=== PATIENT | female | born 1945 | race Caucasian/White ===

== ENCOUNTER 2016-10-24 20:19 | Emergency (ER) | payer MEDICARE ==
--- NOTE | 2016-10-24 22:48 | ERNOTE ---
Time Seen by Provider: 10/24/16 22:40 Stated Complaint: loosing voice Presenting Symptoms:: cough, runny nose Source: patient, family Exam Limitations: no limitations Immunizations: IMMUNIZATION HX Immunizations Up to Date Yes History of Influenza Vaccine No Hx Pneumococcal Vaccination No Allergies/Adverse Reactions: Allergies No Known Allergies Allergy (Verified 11/29/15 18:18) Home Medications: HOME MEDICATIONS Aspirin 325 mg PO DAILY 11/25/14 [Last Taken 11/29/15 07:00] Atenolol [Tenormin] 100 mg PO DAILY 11/25/14 [Last Taken 11/29/15 07:00] Levothyroxine Sodium [Synthroid] 100 mcg PO DAILY 11/25/14 [Last Taken 11/29/15 07:00] Simvastatin [Zocor] 40 mg PO HS 11/25/14 [Last Taken 11/28/15 22:00] Lisinopril/Hydrochlorothiazide [Lisinopril-Hctz 20-12.5 mg Tab] 20 - 25 mg PO DAILY 05/22/15 [Last Taken 11/29/15 08:00] amLODIPine BESYLATE [Norvasc] 2.5 mg PO DAILY 05/22/15 [Last Taken 11/29/15 17: 00] - History of Present Ilness Narrative: Pt having sinus congestion onset today, cough and PND onset a few days ago, now loosing her voice Timing: getting worse Severity: moderate Frequency/Possible Cause: Reports: occasional episodes Associated Symptoms: Denies: shortness of breath Review of Systems - Review of Systems Constitutional: Absent: fever, chills EYE: Present: no symptoms reported ENT: Present: See HPI, nose congestion, nasal drainage Respiratory: Present: See HPI, cough. Absent: shortness of breath, wheezing Cardiology: Absent: chest pain, palpitations Gastrointestinal/Abdominal: Absent: nausea, vomiting Genitourinary: Present: no symptoms reported Musculoskeletal: Present: no symptoms reported Skin: Present: rash - left side of face, she reacts to the metal in her phone and had a long phone conversation with her sister last week, which caused the rash Neurological: Present: no symptoms reported Endocrine: Present: no symptoms reported Hematologic/Lymphatic: Present: no symptoms reported Psych: Present: no symptoms reported - Patient's Past Medical History Patient History - Medical: No pertinent hx, Hypothyroidism Patient History - Cardiac/Respiratory: COPD, Hypertension, Myocardial Infarction Patient History - Cancer: No Hx of Cancer Patient History - Surgical Procedures: T & A Patient History - Other: None - Family History Mother Family History - Medical: , No pertinent hx Family History - Cardiac/Respiratory: No pertinent hx Father Family History - Medical: , No pertinent hx Family History - Cardiac/Respiratory: No pertinent hx - Social History Living Situations: alone Abuse History: No History of abuse Psych History: No pertinent hx Smoking Status: Current every day smoker Patient requests Smoking Cessation Consult: No Initiate information on Smoking Cessation: No Alcohol Use: none Drug Use: none - Immunizations Immunizations Up to Date: Yes Hx Pneumococcal Vaccination: No History of Influenza Vaccine: No Physical Exam - Physical Exam General Appearance: Present: wd/wn, alert, no apparent distress Eye Exam: Normal inspection: bilateral, PERRL: bilateral Ears, Nose, Throat: Present: nasal congestion. Absent: tonsillar swelling Respiratory: Present: no respiratory distress, decreased breath sounds - very poor air movement, expiration (prolonged) Cardiovascular/Chest: Present: regular rate, rhythm Extremity Exam: Present: normal inspection, non-tender Neurological Exam: Present: alert, oriented, normal mood/affect, no motor/ sensory deficits ED Progress - Vital Signs Vital Signs: Vital Signs 10/24/16 10/24/16 20:30 21:51 Temperature 36.9 C Pulse Rate 63 90 Respiratory 20 18 Rate Blood Pressure 162/69 158/86 O2 Sat by Pulse 98 95 Oximetry - X-Ray X-Ray #1 X-Ray: chest Interpretation: Interp. by me X-ray Comments: hyperinflation of COPD, Nothing acute - Progress/Reassessment Chief Complaint: Upper Respiratory Symptoms Departure - Departure Clinical Impression: Bronchitis Dermatitis due to metals Qualifiers: Contact dermatitis type: allergic Qualified Code(s): L23.0 - Allergic contact dermatitis due to metals Disposition: Home self-care Condition: Good Instructions: Acute Bronchitis, [id number] Additional Instructions: you may use hydrocortisone cream on your face for 5-7 days. if not improving see your regular doctor Referrals: [Primary Care Provider] -
[2016-10-25] MEDS ORDERED: ALBUTEROL SULFATE 200 PUFF INHALER IH ONE (00:16)
[2016-10-25] MEDS ORDERED: ALBUTEROL SULFATE 60 PUFF INHALER IH ONE (00:25)
[2016-10-25 00:36] VITALS: BP 131/75
== END 2016-10-25 00:38 | disposition home or self-care (01) ==
LOC: ER 20:19
DX: J20.8 Acute bronchitis due to other specified organisms (principal); Z72.0 Tobacco use; L23.0 Allergic contact dermatitis due to metals; I10 Essential (primary) hypertension; E03.9 Hypothyroidism, unspecified; I25.2 Old myocardial infarction; J04.0 Acute laryngitis

== ENCOUNTER 2016-10-25 19:30 | Emergency (ER) | payer MEDICARE ==
[2016-10-25 19:46] VITALS: BP 146/72
--- NOTE | 2016-10-25 20:50 | ERNOTE ---
ENT HPI Presenting Symptoms: other Time Seen by Provider: 10/25/16 20:30 Source: patient Exam Limitations: no limitations - Immun/Allergies/Home Medications Immunizations: IMMUNIZATION HX Immunizations Up to Date Yes History of Influenza Vaccine No Hx Pneumococcal Vaccination No Allergies/Adverse Reactions: Allergies Allergy/AdvReac Type Severity Reaction Status Date / Time No Known Allergies Allergy Verified 10/25/16 19:46 Home Medications: HOME MEDICATIONS Aspirin 325 mg PO DAILY 11/25/14 [Last Taken 11/29/15 07:00] Atenolol [Tenormin] 100 mg PO DAILY 11/25/14 [Last Taken 11/29/15 07:00] Levothyroxine Sodium [Synthroid] 100 mcg PO DAILY 11/25/14 [Last Taken 11/29/15 07:00] Simvastatin [Zocor] 40 mg PO HS 11/25/14 [Last Taken 11/28/15 22:00] Lisinopril/Hydrochlorothiazide [Lisinopril-Hctz 20-12.5 mg Tab] 20 - 25 mg PO DAILY 05/22/15 [Last Taken 11/29/15 08:00] amLODIPine BESYLATE [Norvasc] 2.5 mg PO DAILY 05/22/15 [Last Taken 11/29/15 17: 00] - History of Present Illness Narrative: pt was seen here yesterday and diagnosed with bronchitis. her voice has continued to worsen Severity: Present: moderate ENT Location: Present: throat Review of Systems - Review of Systems Constitutional: Present: recent illness. Absent: fever ENT: Present: nose congestion Respiratory: Present: cough Cardiology: Present: no symptoms reported Gastrointestinal/Abdominal: Present: no symptoms reported Genitourinary: Present: no symptoms reported Musculoskeletal: Present: no symptoms reported Skin: Present: no symptoms reported Neurological: Present: no symptoms reported Endocrine: Present: no symptoms reported Hematologic/Lymphatic: Present: no symptoms reported Psych: Present: no symptoms reported - Patient's Past Medical History Patient History - Medical: No pertinent hx, Hypothyroidism Patient History - Cardiac/Respiratory: COPD, Hypertension, Myocardial Infarction Patient History - Cancer: No Hx of Cancer Patient History - Surgical Procedures: T & A Patient History - Other: None - Family History Mother Family History - Medical: , No pertinent hx Family History - Cardiac/Respiratory: No pertinent hx Father Family History - Medical: , No pertinent hx Family History - Cardiac/Respiratory: No pertinent hx - Social History Living Situations: home Abuse History: No History of abuse Psych History: No pertinent hx Smoking Status: Current every day smoker Alcohol Use: none Drug Use: none - Immunizations Immunizations Up to Date: Yes Hx Pneumococcal Vaccination: No History of Influenza Vaccine: No Physical Exam - Physical Exam General Appearance: Present: wd/wn, alert, no apparent distress Ears, Nose, Throat: Present: nasal congestion. Absent: pharyngeal erythema Neck: Present: normal inspection, nontender. Absent: lymphadenopathy (R), lymphadenopathy (L) Respiratory: Present: no respiratory distress, lungs clear - moving more air today but still only fair air movement Cardiovascular/Chest: Present: regular rate, rhythm, no murmur, normal peripheral pulses Neurological Exam: Present: alert, oriented, normal mood/affect, no motor/ sensory deficits Skin Exam: Present: normal color, warm/dry Lymphatic Exam: Present: no adenopathy ED Progress - Results and Orders Patient's Lab Results:: I have reviewed the patient's lab results. Results and Orders: Laboratory Tests 10/25/16 20:43 Group A Strep Rapid Negative - Vital Signs Patient's Vital Signs:: I have reviewed the patient's vital signs. Vital Signs: Vital Signs 10/25/16 19:40 Temperature 36.4 C L Pulse Rate 63 Respiratory 20 Rate Blood Pressure 146/72 O2 Sat by Pulse 100 Oximetry - Progress/Reassessment Chief Complaint: Sore Throat Departure Clinical Impression: Laryngitis - Departure Disposition: Home self-care Condition: Good Instructions: Hoarseness Additional Instructions: use NICE or Sucrets lozenges to soothe your throat. Referrals: [Primary Care Provider] -
== END 2016-10-25 21:45 | disposition home or self-care (01) ==
LOC: ER 19:30
DX: J04.0 Acute laryngitis (principal); F17.210 Nicotine dependence, cigarettes, uncomplicated

== ENCOUNTER 2016-10-26 14:13 | Emergency (ER) | payer MEDICARE ==
--- NOTE | 2016-10-26 14:30 | ERNOTE ---
Dyspnea - General Presenting Symptoms: shortness of breath Source: patient Exam Limitations: no limitations - Immun/Allergies/Home Medications Immunizations: IMMUNIZATION HX Immunizations Up to Date Yes History of Influenza Vaccine No Hx Pneumococcal Vaccination No Allergies/Adverse Reactions: Allergies No Known Allergies Allergy (Verified 10/26/16 14:20) Home Medications: HOME MEDICATIONS Aspirin 325 mg PO DAILY 11/25/14 [Last Taken 11/29/15 07:00] Atenolol [Tenormin] 100 mg PO DAILY 11/25/14 [Last Taken 11/29/15 07:00] Levothyroxine Sodium [Synthroid] 100 mcg PO DAILY 11/25/14 [Last Taken 11/29/15 07:00] Simvastatin [Zocor] 40 mg PO HS 11/25/14 [Last Taken 11/28/15 22:00] Lisinopril/Hydrochlorothiazide [Lisinopril-Hctz 20-12.5 mg Tab] 20 - 25 mg PO DAILY 05/22/15 [Last Taken 11/29/15 08:00] amLODIPine BESYLATE [Norvasc] 2.5 mg PO DAILY 05/22/15 [Last Taken 11/29/15 17: 00] Albuterol Sulfate [Proair Hfa] 2 puff IH Q4H PRN #1 inhaler 10/26/16 [Last Taken Unknown] predniSONE [Prednisone] 3 tab PO DAILY #12 tab 10/26/16 [Last Taken Unknown] - History of Present Illness Narrative: Over the last 48 hrs patient was seen in the ER twice for URI symptoms and hoarseness and was diagnosed with bronchitis. About an hour prior to coming here she started to become short of breath and was coughing up blood. She stopped smoking two days ago, used to smoke 1/2ppd. She has a history of [place], possible COPD Date (Duration): 10/26/16 Time (Timing): 15:00 Review of Systems - Review of Systems Constitutional: Absent: recent illness EYE: Absent: double vision ENT: Present: nasal drainage. Absent: sore throat Respiratory: Present: shortness of breath - baseline, cough Cardiology: Present: See HPI, chest pain Gastrointestinal/Abdominal: Absent: nausea, vomiting, abdominal pain Musculoskeletal: Absent: muscle pain Skin: Absent: rash Neurological: Absent: headache - Patient's Past Medical History Patient History - Medical: No pertinent hx, Hypothyroidism Patient History - Cardiac/Respiratory: COPD, Hypertension, Myocardial Infarction Patient History - Cancer: No Hx of Cancer Patient History - Surgical Procedures: T & A Patient History - Other: None LMP (females 10-50): Menopausal - Family History Mother Family History - Medical: , No pertinent hx Family History - Cardiac/Respiratory: No pertinent hx Father Family History - Medical: , No pertinent hx Family History - Cardiac/Respiratory: No pertinent hx - Social History Living Situations: home Abuse History: No History of abuse Psych History: No pertinent hx Alcohol Use: none Drug Use: none - Immunizations Immunizations Up to Date: Yes Hx Pneumococcal Vaccination: No History of Influenza Vaccine: No Physical Exam - Physical Exam General Appearance: Present: wd/wn, alert, no apparent distress Ears, Nose, Throat: Present: normal pharynx Respiratory: Present: no respiratory distress, decreased breath sounds, expiration (prolonged) Cardiovascular/Chest: Present: regular rate, rhythm, no murmur Gastrointestinal/Abdominal: Present: nontender, nondistended, soft Extremity Exam: Present: no edema Neurological Exam: Present: alert, oriented, normal mood/affect Skin Exam: Present: normal color, warm/dry ED Progress - Results and Orders Patient's Lab Results:: I have reviewed the patient's lab results. - Vital Signs Patient's Vital Signs:: I have reviewed the patient's vital signs. Vital Signs: Vital Signs 10/26/16 14:16 Temperature 36.7 C Pulse Rate 84 Respiratory 16 Rate Blood Pressure 194/124 O2 Sat by Pulse 94 Oximetry - EKG EKG: NSR, LBBB, unchanged from - 11/2015 EKG read: Interp. by me - X-Ray X-Ray #1 X-Ray: chest - chronic changes, no acute Interpretation: Reviewed by me - Progress/Reassessment Chief Complaint: Dyspnea Progress Note-Subjective: 10/26/16 15:15 discussed test results, O2 sats 95% on RA, BP 148/62 Departure Clinical Impression: COPD exacerbation - Departure Disposition: Home self-care Condition: Good Instructions: Chronic Obstructive Pulmonary Disease Exacerbation, [id number] Additional Instructions: call your doctor for follow up Referrals: [Primary Care Provider] - Prescriptions: Albuterol Sulfate [Proair Hfa] 2 puff IH Q4H PRN #1 inhaler PRN Reason: Shortness Of Breath predniSONE [Prednisone] 3 tab PO DAILY #12 tab
[2016-10-26 14:37] LABS: Hematocrit 42.4 % (37.0-47.0); Hemoglobin 14.6 gm/dL (12.5-16.0); Mean Cell Volume 92.4 fl (78-100); Mean Corpuscular Hemoglobin 31.8 pg (27-31); Mean Corpuscular Hgb Conc 34.4 g/dl (32-36); Mean Platelet Volume 8.9 fl (6.0-9.5); Neutrophil # 3.5 K/mm3 (1.3-6.0); Neutrophil % 64.3 % (42-75.0); Platelet Count 239 K/mm3 (150-450); Red Blood Count 4.59 M/mm3 (4.2-5.4); White Blood Count 5.5 K/mm3 (4.0-10.5)
[2016-10-26 14:55] LABS: Troponin I 0.057 ng/ml (0.00-0.10)
[2016-10-26 14:57] LABS: Albumin * 3.6 gm/dl (3.4-5.0); Anion Gap 10.5 mmol/L (6.8-13.8); BUN/Creatinine Ratio 20.6 (9.0-21.6); Bilirubin, Total 0.6 mg/dL (0.0-1.1); Ca. Corrected For Albumin 8.7 mg/dL (8.4-10.2); Calcium * 8.7 mg/dL (7.9-10.9); Carbon Dioxide 31.2 mmol/L (24-32.6); Potassium 3.7 mmol/L (3.4-4.6); Total Protein 7.6 gm/dL (6.2-8.2)
[2016-10-26] MEDS ORDERED: predniSONE 20 MG TABLET PO ONE (15:14)
[2016-10-26] MEDS ORDERED: predniSONE 20 MG TABLET ONE (15:21)
[2016-10-26 15:36] VITALS: BP 146/62
== END 2016-10-26 15:35 | disposition home or self-care (01) ==
LOC: ER 14:13
DX: J44.1 Chronic obstructive pulmonary disease with (acute) exacerbation (principal); E03.9 Hypothyroidism, unspecified; I10 Essential (primary) hypertension; I25.2 Old myocardial infarction

== ENCOUNTER 2017-05-24 15:49 | Emergency (ER) | payer MEDICARE ==
[2017-05-24 16:03] VITALS: BP 133/64
== END 2017-05-24 16:03 | disposition home or self-care (01) ==
LOC: ER 15:49
DX: Z13.6 Encounter for screening for cardiovascular disorders (principal)

== ENCOUNTER 2017-05-27 16:15 | Emergency (ER) | payer MEDICARE ==
[2017-05-27 16:33] VITALS: BP 170/73
== END 2017-05-27 16:36 | disposition short-term general hospital (02) ==
LOC: ER 16:15
DX: Z13.6 Encounter for screening for cardiovascular disorders (principal)

== ENCOUNTER 2017-05-28 13:53 | Emergency (ER) | payer MEDICARE ==
[2017-05-28 14:09] VITALS: BP 139/62
== END 2017-05-28 14:10 | disposition home or self-care (01) ==
LOC: ER 13:53
DX: Z13.6 Encounter for screening for cardiovascular disorders (principal)

== ENCOUNTER 2017-06-01 13:42 | Emergency (ER) | payer MEDICARE ==
[2017-06-01 13:52] VITALS: BP 150/51
== END 2017-06-01 13:56 | disposition home or self-care (01) ==
LOC: ER 13:42
DX: Z13.6 Encounter for screening for cardiovascular disorders (principal)

== ENCOUNTER 2017-06-04 18:04 | Emergency (ER) | payer MEDICARE ==
[2017-06-04 18:23] VITALS: BP 153/71
== END 2017-06-04 18:22 | disposition home or self-care (01) ==
LOC: ER 18:04
DX: Z13.6 Encounter for screening for cardiovascular disorders (principal)

== ENCOUNTER 2017-06-13 16:19 | Emergency (ER) | payer MEDICARE ==
[2017-06-13 16:46] VITALS: BP 150/78
== END 2017-06-13 16:47 | disposition home or self-care (01) ==
LOC: ER 16:19
DX: Z13.6 Encounter for screening for cardiovascular disorders (principal)

== ENCOUNTER 2017-06-21 16:45 | Emergency (ER) | payer MEDICARE ==
[2017-06-21 17:10] VITALS: BP 145/60
== END 2017-06-21 17:10 | disposition home or self-care (01) ==
LOC: ER 16:45
DX: Z13.6 Encounter for screening for cardiovascular disorders (principal)

== ENCOUNTER 2017-07-07 14:00 | Emergency (ER) | payer MEDICARE ==
[2017-07-07 14:07] VITALS: BP 134/64
== END 2017-07-07 14:15 | disposition home or self-care (01) ==
LOC: ER 14:00
DX: Z13.6 Encounter for screening for cardiovascular disorders (principal)

== ENCOUNTER 2017-07-08 14:43 | Emergency (ER) | payer MEDICARE ==
[2017-07-08 14:50] VITALS: BP 145/87
== END 2017-07-08 14:50 | disposition home or self-care (01) ==
LOC: ER 14:43
DX: Z13.6 Encounter for screening for cardiovascular disorders (principal)

== ENCOUNTER 2017-07-09 13:00 | Emergency (ER) | payer MEDICARE ==
--- NOTE | 2017-07-09 13:39 | ERNOTE ---
Time Seen by Provider: 07/09/17 13:28 Stated Complaint: RIB PAIN Presenting Symptoms:: cough Source: patient Exam Limitations: no limitations Immunizations: IMMUNIZATION HX Immunizations Up to Date Yes History of Influenza Vaccine Yes Hx Pneumococcal Vaccination No Allergies/Adverse Reactions: Allergies No Known Allergies Allergy (Verified 05/27/17 16:24) Home Medications: HOME MEDICATIONS Aspirin 325 mg PO DAILY 11/25/14 [Last Taken 11/29/15 07:00] Levothyroxine Sodium [Synthroid] 100 mcg PO DAILY 11/25/14 [Last Taken 11/29/15 07:00] Simvastatin [Zocor] 40 mg PO HS 11/25/14 [Last Taken 11/28/15 22:00] Lisinopril/Hydrochlorothiazide [Lisinopril-Hctz 20-12.5 mg Tab] 20 - 25 mg PO DAILY 05/22/15 [Last Taken 11/29/15 08:00] Albuterol Sulfate [Proair Hfa] 2 puff IH Q4H PRN #1 inhaler 10/26/16 [Last Taken Unknown] Albuterol Sulfate [Ventolin HFA] 2 puff IH Q6H PRN 7 Days inhaler 07/09/17 [ Last Taken Unknown] Doxycycline Monohydrate 100 mg PO BID #20 tablet 07/09/17 [Last Taken Unknown] Metoprolol Tartrate [Lopressor] 150 mg PO BID 07/09/17 [Last Taken Unknown] predniSONE [Deltasone] 20 mg PO BID #10 tablet 07/09/17 [Last Taken Unknown] - History of Present Ilness Narrative: Patient presents with a cough and congestion and intermittent lower bilateral rib tenderness with deep breath and palpation Timing: intermittent Severity: moderate Frequency/Possible Cause: Reports: chronic episodes Modifying Factors - Improves: Reports: nothing Modifying Factors - Worsens: Reports: other - chronic tobacco addiction Associated Symptoms: Reports: cough Prior Treatment: Reports: recently seen Review of Systems - Review of Systems Constitutional: Present: See HPI EYE: Present: no symptoms reported ENT: Present: no symptoms reported Respiratory: Present: See HPI, cough Cardiology: Present: no symptoms reported Gastrointestinal/Abdominal: Present: no symptoms reported Genitourinary: Present: no symptoms reported Musculoskeletal: Present: no symptoms reported Skin: Present: no symptoms reported Neurological: Present: no symptoms reported Endocrine: Present: no symptoms reported Hematologic/Lymphatic: Present: no symptoms reported Psych: Present: no symptoms reported - Patient's Past Medical History Patient History - Medical: No pertinent hx, Hypothyroidism Patient History - Cardiac/Respiratory: COPD, Hypertension, Myocardial Infarction Patient History - Cancer: No Hx of Cancer Patient History - Surgical Procedures: T & A, Other Patient History - Other: None - Family History Mother Family History - Medical: , No pertinent hx Family History - Cardiac/Respiratory: No pertinent hx Father Family History - Medical: , No pertinent hx Family History - Cardiac/Respiratory: No pertinent hx - Social History Living Situations: home Abuse History: No History of abuse Psych History: No pertinent hx Smoking Status: Current every day smoker Have you smoked in the past 12 months: Yes Alcohol Use: none Drug Use: none - Immunizations Immunizations Up to Date: Yes Hx Pneumococcal Vaccination: No History of Influenza Vaccine: Yes Physical Exam - Physical Exam General Appearance: Present: wd/wn, alert, mild distress - all respiratory Eye Exam: Normal inspection: bilateral, PERRL: bilateral Ears, Nose, Throat: Present: normal ENT inspection, H, normal pharynx Neck: Present: normal inspection, nontender Respiratory: Present: no respiratory distress, no accessory muscle use, chest nontender, decreased breath sounds, rales - fine course breath sounds Cardiovascular/Chest: Present: regular rate, rhythm, no murmur, normal peripheral pulses Gastrointestinal/Abdominal: Present: normal bowel sounds, nontender, nondistended, soft, no organomegaly Rectal Exam: Present: deferred Back Exam: Present: normal inspection, normal range of motion Extremity Exam: Present: normal inspection, non-tender, no edema, normal range of motion Neurological Exam: Present: alert, oriented, normal mood/affect Skin Exam: Present: normal color, warm/dry Lymphatic Exam: Present: no adenopathy ED Progress - Vital Signs Patient's Vital Signs:: I have reviewed the patient's vital signs. Vital Signs: Vital Signs 07/09/17 13:08 Temperature 36.3 C L Pulse Rate 75 Respiratory 17 Rate Blood Pressure 156/98 O2 Sat by Pulse 90 Oximetry - Progress/Reassessment Chief Complaint: Upper Respiratory Symptoms Plan - Plan Plan: Patient has chronic COPD with chronic bronchitis secondary to over 50 years of smoking. Patient was started on doxycycline, prednisone and a Ventolin inhaler he agrees to follow-up with her family physician. Departure Clinical Impression: COPD exacerbation, Bronchitis - Departure Disposition: Home self-care Condition: Good Instructions: Chronic Obstructive Pulmonary Disease, [id number], Acute Bronchitis, [id number] Referrals: Amber Connor FNP [Primary Care Provider] - Prescriptions: Albuterol Sulfate [Ventolin HFA] 2 puff IH Q6H PRN 7 Days inhaler PRN Reason: Wheezing Doxycycline Monohydrate 100 mg PO BID #20 tablet predniSONE [Deltasone] 20 mg PO BID #10 tablet
[2017-07-09 13:48] VITALS: BP 140/79
== END 2017-07-09 13:45 | disposition home or self-care (01) ==
LOC: ER 13:00
DX: J44.1 Chronic obstructive pulmonary disease with (acute) exacerbation (principal); J20.9 Acute bronchitis, unspecified; J44.0 Chronic obstructive pulmonary disease with (acute) lower respiratory infection; E03.9 Hypothyroidism, unspecified; I10 Essential (primary) hypertension; I25.2 Old myocardial infarction; F17.200 Nicotine dependence, unspecified, uncomplicated

== ENCOUNTER 2017-07-10 17:55 | Emergency (ER) | payer MEDICARE ==
--- NOTE | 2017-07-10 19:05 | ERNOTE ---
Dizziness ER Record Date of Service: 07/10/17 Presenting Symptoms: dizziness Time Seen by Provider: 07/10/17 18:45 Source: patient, family, RN notes reviewed, old records Exam Limitations: clinical condition Immunizations: IMMUNIZATION HX Immunizations Up to Date Yes History of Influenza Vaccine Yes Hx Pneumococcal Vaccination No Allergies/Adverse Reactions: Allergies Allergy/AdvReac Type Severity Reaction Status Date / Time No Known Allergies Allergy Verified 07/10/17 18:24 Home Medications: HOME MEDICATIONS Aspirin 325 mg PO DAILY 11/25/14 [Last Taken 11/29/15 07:00] Levothyroxine Sodium [Synthroid] 100 mcg PO DAILY 11/25/14 [Last Taken 11/29/15 07:00] Simvastatin [Zocor] 40 mg PO HS 11/25/14 [Last Taken 11/28/15 22:00] Albuterol Sulfate [Proair Hfa] 2 puff IH Q4H PRN #1 inhaler 10/26/16 [Last Taken Unknown] Doxycycline Monohydrate 100 mg PO BID #20 tablet 07/09/17 [Last Taken Unknown] Metoprolol Tartrate [Lopressor] 150 mg PO BID 07/09/17 [Last Taken Unknown] predniSONE [Deltasone] 20 mg PO BID #10 tablet 07/09/17 [Last Taken Unknown] Levofloxacin [Levaquin] 500 mg PO DAILY #10 tab 07/10/17 [Last Taken Unknown] Lisinopril/Hydrochlorothiazide [Lisinopril-Hctz 20-25 mg Tab] 1 each PO DAILY [Last Taken Unknown] amLODIPine BESYLATE [Norvasc] 5 mg PO DAILY 07/10/17 [Last Taken Unknown] - History of Present Illness Narrative: Cathy is a 71-year-old female brought to the emergency department for dizziness by her sister. She was seen yesterday and diagnosed with a COPD exacerbation. She was started on doxycycline and prednisone. Her sister noticed earlier today that she did not seem like herself. The patient was talking about animals sitting on her couch that were not there. She has no history of prior episodes like this. She then later admitted that she had fallen the night before and hit her head. She has been here almost daily for several days to have her blood pressure checked. Her primary care provider adjusted her medication approximately 2 weeks ago. She reports that she has not felt right since then. Severity: max: moderate Severity: currently: mild Associated Symptoms: Present: light headedness. Absent: hearing loss, ringing/ roaring in ear, ear pain, nausea, vomiting, weakness, numbness, sweating Sense of movement: Present: none Decreased ability to stand/walk:: Present: walks w/o assistance Usually:: Present: walks w/o assistance Prior Treament: Reports: recently seen, treated by physician, currently on antibiotics Review of Systems - Review of Systems Constitutional: Present: fatigue, malaise. Absent: fever, chills EYE: Absent: eye pain, vision changes ENT: Absent: ear pain, nose congestion, nasal drainage, sore throat Respiratory: Present: shortness of breath, cough. Absent: wheezing Cardiology: Absent: chest pain, syncope, edema Gastrointestinal/Abdominal: Absent: nausea, vomiting Genitourinary: Present: no symptoms reported Musculoskeletal: Absent: muscle pain, neck pain, joint pain Skin: Absent: rash, lesions, lumps Neurological: Present: dizziness/light-headedness. Absent: headache, pre- existing deficit Endocrine: Present: no symptoms reported Hematologic/Lymphatic: Absent: easy bruising, easy bleeding Psych: Absent: anxiety, depressed - Patient's Past Medical History Patient History - Medical: Hypothyroidism Patient History - Cardiac/Respiratory: COPD, Hypertension, Myocardial Infarction Patient History - Cancer: No Hx of Cancer Patient History - Surgical Procedures: T & A, Other Patient History - Other: None LMP (females 10-50): Menopausal - Family History Mother Family History - Medical: , No pertinent hx Family History - Cardiac/Respiratory: No pertinent hx Father Family History - Medical: , No pertinent hx Family History - Cardiac/Respiratory: No pertinent hx - Social History Living Situations: home Abuse History: No History of abuse Psych History: No pertinent hx Smoking Status: Current every day smoker Alcohol Use: none Drug Use: none - Immunizations Immunizations Up to Date: Yes Hx Pneumococcal Vaccination: No History of Influenza Vaccine: Yes Physical Exam - Physical Exam General Appearance: Present: wd/wn, alert, no apparent distress Head Exam: Present: normal inspection, no evidence of injury Eye Exam: Normal inspection: bilateral, PERRL: bilateral, EOMI: bilateral Ears, Nose, Throat: Present: normal ENT inspection, normal pharynx Neck: Present: normal inspection, nontender, supple, full range of motion Respiratory: Present: no respiratory distress, no accessory muscle use, decreased breath sounds, expiration (prolonged) Cardiovascular/Chest: Present: regular rate, rhythm, no murmur, normal peripheral pulses Extremity Exam: Present: normal inspection, normal range of motion, no edema Neurological Exam: Present: alert, normal mood/affect, no motor/sensory deficits , other - Oriented x3 with occasional bouts of confusion Skin Exam: Present: normal color, warm/dry ED Progress - Results and Orders Patient's Lab Results:: I have reviewed the patient's lab results. - Vital Signs Patient's Vital Signs:: I have reviewed the patient's vital signs. Vital Signs: Vital Signs 07/10/17 07/10/17 18:05 18:20 Temperature 36.7 C Pulse Rate 70 72 Respiratory 18 Rate Blood Pressure 121/79 O2 Sat by Pulse 90 92 Oximetry - X-Ray X-Ray #1 X-Ray: chest Interpretation: Reviewed by me X-ray Comments: No focal consolidation present, lower lung peribronchial thickening consistent with bronchitis/COPD - CT/Ultrasound CT/Ultrasound Narrative: Head CT demonstrates no acute intracranial process - Progress/Reassessment Chief Complaint: Dizziness Progress:: Unchanged Plan - Plan Plan: No acute findings to correlate with patient's symptoms, UA did show 3+ bacteria which could be a source of the patient's mental status changes although the specimen was contaminated, a culture is pending. Antibiotic changed to Levaquin as this would cover the urine and her COPD exacerbation. She has f/u scheduled with her PCP in 3 days. Departure Clinical Impression: COPD exacerbation Urinary tract infection Qualifiers: Urinary tract infection type: acute cystitis Hematuria presence: without hematuria Qualified Code(s): N30.00 - Acute cystitis without hematuria - Departure Disposition: Home Follow Up Needed Condition: Stable Instructions: Chronic Obstructive Pulmonary Disease Exacerbation, [id number] , Urinary Tract Infection, Adult, [id number] Additional Instructions: Stop doxycycline (antibiotic from yesterday) and start Levaquin. You will not need another dose until tomorrow evening. Continue your other medications Follow up with Amber as scheduled on Referrals: Amber Connor FNP [Primary Care Provider] - Prescriptions: Levofloxacin [Levaquin] 500 mg PO DAILY #10 tab
[2017-07-10 19:20] LABS: Hematocrit 39.1 % (37.0-47.0); Hemoglobin 13.5 gm/dL (12.5-16.0); Mean Cell Volume 89.9 fl (78-100); Mean Corpuscular Hgb Conc 34.5 g/dl (32-36); Mean Platelet Volume 8.8 fl (6.0-9.5); Neutrophil # 10.7 K/mm3 (1.3-6.0); Neutrophil % 91.3 % (42-75.0); Platelet Count 297 K/mm3 (150-450); Red Blood Count 4.35 M/mm3 (4.2-5.4); Red Cell Distribution Width 12.9 % (11.5-14.0); White Blood Count 11.8 K/mm3 (4.0-10.5)
[2017-07-10 19:39] LABS: Albumin * 2.8 gm/dl (3.4-5.0); Anion Gap 8.3 mmol/L (6.8-13.8); BUN/Creatinine Ratio 33.9 (9.0-21.6); Bilirubin, Total 0.5 mg/dL (0.0-1.1); Ca. Corrected For Albumin 9.2 mg/dL (8.4-10.2); Calcium * 8.6 mg/dL (7.9-10.9); Potassium 4.3 mmol/L (3.4-4.6); Total Protein 8.1 gm/dL (6.2-8.2)
[2017-07-10 20:10] LABS: Urine Bilirubin Negative (NEGATIVE); Urine Blood 25 /ul (NEGATIVE); Urine Ketone Negative (NEGATIVE); Urine Nitrite Negative (NEGATIVE); Urine Protein Negative (NEGATIVE); Urine Specific Gravity >=1.030 SP.GR. (1.005-1.010); Urine Urobilinogen Normal (NORMAL); Urine pH 5.5 pH (5.0-7.0)
[2017-07-10 20:22] LABS: Urine Appearance Clear; Urine Bacteria 3+; Urine Color Yellow; Urine RBC None Seen /hpf (0-5); Urine WBC 0-5 /hpf (0-5)
[2017-07-10] MEDS ORDERED: LEVOFLOXACIN 500 MG TABLET PO ONE (20:42)
[2017-07-10] MEDS ORDERED: LEVOFLOXACIN 500 MG TABLET ONE (20:45)
[2017-07-10 21:28] VITALS: BP 135/64
== END 2017-07-10 20:51 | disposition home or self-care (01) ==
LOC: ER 17:55
DX: J44.1 Chronic obstructive pulmonary disease with (acute) exacerbation (principal); N30.00 Acute cystitis without hematuria; E03.9 Hypothyroidism, unspecified; I10 Essential (primary) hypertension; I25.2 Old myocardial infarction

== ENCOUNTER 2017-07-28 12:33 | Emergency (ER) | payer MEDICARE ==
[2017-07-28 13:53] LABS: Hematocrit 36.2 % (37.0-47.0); Hemoglobin 12.3 gm/dL (12.5-16.0); Mean Cell Volume 91.9 fl (78-100); Mean Corpuscular Hemoglobin 31.2 pg (27-31); Neutrophil # 7.1 K/mm3 (1.3-6.0); Platelet Count 263 K/mm3 (150-450); Red Blood Count 3.94 M/mm3 (4.2-5.4); Red Cell Distribution Width 14.2 % (11.5-14.0); White Blood Count 9.3 K/mm3 (4.0-10.5)
[2017-07-28 14:08] LABS: Albumin * 2.6 gm/dl (3.4-5.0); Anion Gap 6.9 mmol/L (6.8-13.8); BUN/Creatinine Ratio 40.5 (9.0-21.6); Bilirubin, Total 0.3 mg/dL (0.0-1.1); Ca. Corrected For Albumin 9.1 mg/dL (8.4-10.2); Calcium * 8.3 mg/dL (7.9-10.9); Carbon Dioxide 34.3 mmol/L (24-32.6); Magnesium 1.9 mg/dL (1.2-2.8); Potassium 4.2 mmol/L (3.4-4.6); Total Protein 6.7 gm/dL (6.2-8.2); Troponin I 0.044 ng/ml (0.00-0.10)
--- NOTE | 2017-07-28 14:23 | ERNOTE ---
Chest Pain/Cardiac HPI Chief Complaint: Chest Pain Time Seen by Provider: 07/28/17 12:41 Source: patient Exam Limitations: no limitations Immunizations: IMMUNIZATION HX Immunizations Up to Date Yes History of Influenza Vaccine Yes Hx Pneumococcal Vaccination No Allergies/Adverse Reactions: Allergies No Known Allergies Allergy (Verified 07/28/17 12:36) Home Medications: HOME MEDICATIONS Aspirin 325 mg PO DAILY 11/25/14 [Last Taken 11/29/15 07:00] Levothyroxine Sodium [Synthroid] 100 mcg PO DAILY 11/25/14 [Last Taken 11/29/15 07:00] Simvastatin [Zocor] 40 mg PO HS 11/25/14 [Last Taken 11/28/15 22:00] Metoprolol Tartrate [Lopressor] 150 mg PO BID 07/09/17 [Last Taken Unknown] Lisinopril/Hydrochlorothiazide [Lisinopril-Hctz 20-25 mg Tab] 1 each PO DAILY [Last Taken Unknown] Clotrimazole [Lotrimin Cream] 1 appl TP BID 07/28/17 [Last Taken Unknown] Famotidine [Pepcid] 40 mg PO HS #30 tab 07/28/17 [Last Taken Unknown] Hydrocortisone [Hydrocortisone 0.5% Cream] 1 appl TP BID 07/28/17 [Last Taken Unknown] Silver Sulfadiazine 25 gm TP BID 07/28/17 [Last Taken Unknown] Narrative: Patient had an episode of epigastric pain with belching prior to arrival. Patient states that she ate a can of Spaghetti with meatballs and developed acute epigastric abdominal pain. Patient states she likely had a significant acidic taste in the back of her throat with the burning. Timing: resolved prior to arrival Severity/Quality: mild, burning Location: epigastric Chest Pain Radiation: other - up the throat Activities at Onset: other - eating Modifying Factors - Improves: Present: nothing Modifying Factors - Worsens: Present: nothing Nitro Today/Relief: no nitro taken today Aspirin Treatment Today: no aspirin today Associated Symptoms: Present: denies symptoms Prior Chest Pain/Cardiac Workup: Reports: non-cardiac Review of Systems - Review of Systems Constitutional: Present: See HPI EYE: Present: no symptoms reported ENT: Present: no symptoms reported Respiratory: Present: no symptoms reported Cardiology: Present: no symptoms reported Gastrointestinal/Abdominal: Present: See HPI, abdominal pain Genitourinary: Present: no symptoms reported Musculoskeletal: Present: no symptoms reported Skin: Present: no symptoms reported Neurological: Present: no symptoms reported Endocrine: Present: no symptoms reported Hematologic/Lymphatic: Present: no symptoms reported Psych: Present: no symptoms reported - Patient's Past Medical History Patient History - Medical: Anxiety, Hypothyroidism Patient History - Cardiac/Respiratory: Bronchitis, COPD, Hypertension, Hyperlipidemia Patient History - Cancer: No Hx of Cancer Patient History - Surgical Procedures: T & A, Other Patient History - Other: None - Family History Mother Family History - Medical: , No pertinent hx Family History - Cardiac/Respiratory: No pertinent hx Father Family History - Medical: , No pertinent hx Family History - Cardiac/Respiratory: No pertinent hx - Social History Living Situations: home Abuse History: No History of abuse Psych History: No pertinent hx Smoking Status: Current every day smoker Have you smoked in the past 12 months: Yes Alcohol Use: none Drug Use: none - Immunizations Immunizations Up to Date: Yes Hx Pneumococcal Vaccination: No History of Influenza Vaccine: Yes Physical Exam - Physical Exam General Appearance: Present: wd/wn, alert, no apparent distress Head Exam: Present: normal inspection Eye Exam: Normal inspection: bilateral, PERRL: bilateral Ears, Nose, Throat: Present: normal ENT inspection, H, normal pharynx Neck: Present: normal inspection, nontender Respiratory: Present: no respiratory distress, normal breath sounds, no accessory muscle use, chest nontender, lungs clear Cardiovascular/Chest: Present: regular rate, rhythm, no murmur, normal peripheral pulses Gastrointestinal/Abdominal: Present: normal bowel sounds, nondistended, soft, no organomegaly, tenderness - mild epigastric abdominal pain Rectal Exam: Present: deferred Back Exam: Present: normal inspection, normal range of motion Extremity Exam: Present: normal inspection, non-tender, no edema, normal range of motion Neurological Exam: Present: alert, oriented, normal mood/affect Skin Exam: Present: normal color, warm/dry Lymphatic Exam: Present: no adenopathy ED Progress - Results and Orders Patient's Lab Results:: I have reviewed the patient's lab results. - Vital Signs Patient's Vital Signs:: I have reviewed the patient's vital signs. Vital Signs: Vital Signs 07/28/17 07/28/17 07/28/17 12:41 12:56 12:58 Temperature 36.8 C Pulse Rate 112 H 105 H 104 H Respiratory 18 24 H Rate Blood Pressure 163/82 150/54 O2 Sat by Pulse 97 100 Oximetry 07/28/17 07/28/17 13:15 14:04 Temperature Pulse Rate 97 90 Respiratory 17 16 Rate Blood Pressure 145/95 133/50 O2 Sat by Pulse 96 96 Oximetry - EKG EKG: NSR - variably tachycardic however EKG read: Interp. by me - X-Ray X-Ray #1 X-Ray: chest Interpretation: Reviewed by me - Progress/Reassessment Chief Complaint: Chest Pain Plan - Plan Plan: Patient's symptoms do not appear to be cardiac in origin. It didn't appear to have some component of esophagitis and symptoms were completely resolved when she got here. She started on Pepcid, she will refrain from any more canned spaghetti meatballs and she'll call her family physician for an appointment. Departure Clinical Impression: Esophagitis - Departure Disposition: Home self-care Condition: Good Instructions: Esophagitis Referrals: Amber Connor FNP [Primary Care Provider] - Prescriptions: Famotidine [Pepcid] 40 mg PO HS #30 tab
[2017-07-28 15:12] VITALS: BP 130/51
== END 2017-07-28 15:15 | disposition home or self-care (01) ==
LOC: ER 12:33
DX: K20.9 Esophagitis, unspecified (principal)

== ENCOUNTER 2017-08-15 15:32 | Emergency (ER) | payer MEDICARE ==
[2017-08-15 15:52] VITALS: BP 153/74
== END 2017-08-15 15:53 | disposition home or self-care (01) ==
LOC: ER 15:32
DX: Z13.6 Encounter for screening for cardiovascular disorders (principal)

== ENCOUNTER 2017-11-06 18:42 | Emergency (ER) | payer MEDICARE ==
[2017-11-06 18:52] VITALS: BP 159/74
== END 2017-11-06 18:52 | disposition home or self-care (01) ==
LOC: ER 18:42
DX: Z13.6 Encounter for screening for cardiovascular disorders (principal)